=== PATIENT | female | born 1975 | race Caucasian/White ===

== ENCOUNTER 2019-05-25 20:24 | Emergency (ER) | payer MEDICAID ==
[~2019-05-25] VITALS: Ht 165.1 cm; Wt 65.8 kg
[2019-05-25 21:02] VITALS: Ht 165.1 cm; Wt 65.8 kg
[2019-05-25 22:26] VITALS: BP 126/83
== END 2019-05-25 22:26 | disposition home or self-care (01) ==
LOC: ED 20:24
DX: H00.11 Chalazion right upper eyelid (principal)

== ENCOUNTER 2019-08-21 16:55 | Emergency (ER) | payer OTHER ==
[~2019-08-21] VITALS: Ht 162.6 cm; Wt 64.4 kg
[2019-08-21 17:22] VITALS: Ht 162.6 cm; Wt 64.4 kg
[2019-08-21 19:54] VITALS: BP 105/64
== END 2019-08-21 19:54 | disposition home or self-care (01) ==
LOC: ED 16:55
DX: J06.9 Acute upper respiratory infection, unspecified (principal)